=== PATIENT | female | born 1985 | race Caucasian/White ===

== ENCOUNTER 2018-06-20 19:21 | Emergency (ER) | payer MEDICAID ==
[~2018-06-20] VITALS: Ht 175.3 cm; Wt 110.0 kg
[2018-06-20 19:41] VITALS: BP 112/76
== END 2018-06-20 23:00 | disposition left against medical advice (07) ==
LOC: ER 19:21
DX: Z53.21 Procedure and treatment not carried out due to patient leaving prior to being seen by health care provider (principal)

== ENCOUNTER 2018-09-15 20:12 | Emergency (ER) | payer MEDICAID ==
[~2018-09-15] VITALS: Ht 170.2 cm; Wt 78.0 kg
[2018-09-15] MEDS ORDERED: SODIUM CHLORIDE 0.9% 1,000 ML IV ONE (21:45)
[2018-09-15 22:30] LABS: BASOPHILS % 0.7 % (0.0-2.0); EOSINOPHILS % 0.4 % (0.0-5.0); HEMATOCRIT. 39.2 % (36.0-48.0); HEMOGLOBIN. 12.8 g/dL (12.0-16.0); LYMPHOCYTES % 33.5 % (20.0-50.0); MEAN CORPUSCULAR HEMOGLOBIN 25.7 pg (28.0-32.0); MEAN CORPUSCULAR VOLUME 78.5 fL (81.0-99.0); MEAN PLATELET VOLUME 8.1 fl (7.4-10.4); MONOCYTES % 5.3 % (2.0-8.0); NEUTROPHILS % 60.1 % (40.0-76.0); PLATELET 370 x1000/uL (130-400); RED CELL DISTRIBUTION WIDTH 16.5 % (11.6-14.6)
[2018-09-15 22:31] LABS: CHLORIDE 104 mEq/L (98-107)
[2018-09-15 22:33] LABS: PROTHROMBIN TIME 10.2 sec (9.1-11.1)
[2018-09-15 22:34] LABS: ETHANOL BLOOD < 10 mg/dL
[2018-09-15 22:39] LABS: CLARITY URINE CLOUDY (CLEAR); COLOR URINE YELLOW (YELLOW); KETONES URINE NEGATIVE (NEGATIVE); LEUKOCYTE ESTERASE URINE 3+ (NEGATIVE); NITRITE URINE NEGATIVE (NEGATIVE); OCCULT BLOOD URINE 3+ (NEGATIVE); PROTEIN URINE NEGATIVE (NEGATIVE); UROBILINOGEN URINE 0.2 E.U./dL (0.2-1.0)
[2018-09-15 22:40] LABS: HCG SCREEN NEGATIVE
[2018-09-15 22:49] LABS: *AMPHETAMINES SCREEN URINE NEGATIVE (NEGATIVE); *BARBITURATES SCREEN URINE NEGATIVE (NEGATIVE); *BENZODIAZEPINES SCREEN URINE NEGATIVE (NEGATIVE); *COCAINE SCREEN URINE NEGATIVE (NEGATIVE); METHADONE URINE SCREEN NEGATIVE (NEGATIVE); OPIATES URINE SCREEN NEGATIVE (NEGATIVE)
[2018-09-15 22:50] LABS: CANNABINOID URINE SCREEN NEGATIVE (NEGATIVE); PHENCYCLIDINE URINE SCREEN NEGATIVE (NEGATIVE)
[2018-09-15] MEDS ORDERED: CEFTRIAXONE 1 G PREMIX 50 ML IV NR (23:00)
[2018-09-16 09:35] VITALS: BP 110/60
== END 2018-09-16 10:06 | disposition home or self-care (01) ==
LOC: ER 20:12
DX: T14.91XA Suicide attempt, initial encounter (principal); T65.892A Toxic effect of other specified substances, intentional self-harm, initial encounter; N39.0 Urinary tract infection, site not specified; F19.19 Other psychoactive substance abuse with unspecified psychoactive substance-induced disorder; F20.9 Schizophrenia, unspecified; F17.200 Nicotine dependence, unspecified, uncomplicated; Y92.9 Unspecified place or not applicable; Y93.89 Activity, other specified; Z88.2 Allergy status to sulfonamides; Z88.8 Allergy status to other drugs, medicaments and biological substances
CPT/HCPCS: 36415; 80053; 80305; 80307; 80320; 80329; 81003; 81025; 82962; 83605; 84703; 85025; 85610; 87077; 87086; 93005; 96365; 96366; 99284; J0696; J7030; G0480